=== PATIENT | female | born 1940 | race Caucasian/White ===

== ENCOUNTER 2022-01-12 06:38 | Day surgery (SDC) | payer OTHER ==
[2022-01-11 11:40] LABS: COVID AG,FIA SOURCE NASAL SWAB
[~2022-01-12] VITALS: Ht 142.2 cm; Wt 58.1 kg
[~2022-01-12 06:38] MED LIST: SODIUM CHLORIDE 0.9% 1,000 ML IV ONE
[2022-01-12] MEDS ORDERED: SODIUM CHLORIDE 0.9% 1,000 ML ONE (06:53)
[2022-01-12] MEDS ORDERED: FentaNYL CITRATE PF 100 MCG/2 ML VIAL ONE (07:34)
[2022-01-12] MEDS ORDERED: MIDAZOLAM HCL 5 MG/ML VIAL ONE (07:34)
[2022-01-12] MEDS ORDERED: MethylPREDNISolone SOD SUCC 125 MG/2 ML VIAL IVP ONE (09:45)
[2022-01-12] MEDS ORDERED: MethylPREDNISolone SOD SUCC 125 MG/2 ML VIAL ONE (10:08)
[2022-01-12] MEDS ORDERED: OXYGEN THERAPY IH SCH (20:00)
== END 2022-01-12 12:35 | disposition home or self-care (01) ==
LOC: SURGERY 06:38
PROVIDERS: ATTEND Internal Medicine Critical Care Medicine
DX: R04.2 Hemoptysis (principal); R05.3 Chronic cough; R91.1 Solitary pulmonary nodule; R91.8 Other nonspecific abnormal finding of lung field; B37.0 Candidal stomatitis; J45.909 Unspecified asthma, uncomplicated; Z79.82 Long term (current) use of aspirin; Z79.899 Other long term (current) drug therapy; Z88.8 Allergy status to other drugs, medicaments and biological substances
CPT/HCPCS: 31623; 31624; 71045; 71250; 87015; 87070; 87101; 87206; 87220; 87426; 88112; 88184; 88185; 88312; C9803; J2250; J2930; J3010; J7030